=== PATIENT | male | born 1980 ===

== ENCOUNTER 2022-08-26 17:11 | Outpatient (CLI) | payer MEDICAID, SELFPAY ==
--- NOTE | 2022-08-26 13:00 | DI.CT_ITS ---
Exam(s) CT ABDOMEN PELVIS W EXAM: CT ABDOMEN PELVIS W CLINICAL HISTORY: LOWER ABD PAIN, R10.30 TECHNIQUE: Imaging Protocol: Axial computed tomography images with coronal and sagittal reformatted images were created and reviewed CONTRAST MATERIAL: Intravenous: Omnipaque 350 Contrast volume:100 mL Oral: Yes COMPARISON: No exams were available for comparison FINDINGS: ABDOMEN: Lung Bases: Normal where visualized. Liver: Normal density. There is a simple cyst in the left lobe of the liver. No follow-up is recomme nded. No suspicious hepatic masses are seen. Portal, Superior Mesenteric, and Splenic Veins: Unremarkable. Gallbladder and Biliary Tract: No radiodense calculus or dilation. Pancreas: Normal density, no abnormal calcifications or inflammatory process. Spleen: Normal. Adrenals: No masses seen. Kidneys: Normal size, contour and axis. No radiodense stones or obstructive uropathy. No masses seen. Abdominal Aorta: Abdominal portion non-dilated. Minimal atherosclerosis. Bowel: No obstruction or bowel wall thickening. The appendix is air-filled. It measures 7 mm in diam eter in its midportion. There is no periappendiceal inflammation. No wall thickening or appendicoli ths is seen. Peritoneal Cavity: No ascites, collection or mesenteric inflammatory response. No free air. Lymph Nodes: Within normal limits. Bones: Within normal limits for the patient's age. Soft Tissues: Unremarkable. PELVIS: Bladder: Symmetric distention, no gross wall thickening. Reproductive Organs: Unremarkable as visualized. Lymph Nodes: Within normal limits. Bones: Within normal limits for the patient's age. IMPRESSION: 1. Borderline appendix based on size at 7 mm in diameter. No appendicoliths or periappendiceal infla mmation is seen. There is air seen within the appendix. Early appendicitis cannot be excluded. Fol low-up as clinically appropriate. This may include a repeat CT scan. 2. No acute abdominal or pelvic process. RADIATION DOSE DELIVERED: 947.24mGy.cm Total DLP DATA REPOSITORY: All CT scans at this facility are submitted to the National Radiology Data Registry (NRDR) Dose Index Registry (DIR) with the [employer] ([employer]). RADIATION OPTIMIZATION: All CT scans at this facility use at least one of these dose optimization te chniques: automated exposure control; mA and/or kV adjustment per patient size (includes targeted exa ms where dose is matched to clinical indication); or iterative reconstruction.
[2022-08-26] MEDS: Barium Sulfate 2% W/V-Berry Smoothie 450 ML BTL 900 ML PO (13:25)
[2022-08-26] MEDS: Omnipaque 350 MG/ML 100 ML BTL IJ (15:45)
[2022-08-26] MEDS: Normal Saline - Diluent 50 ML VIAL IJ (15:46)
== END 2022-08-26 17:31 ==
LOC: DI 17:12
PROVIDERS: PCP Physician Assistant; Visit Provider Physician Assistant
DX: R10.9 Unspecified abdominal pain (principal)
CPT/HCPCS: 74177; J3490